=== PATIENT | female | born 1990 | race Caucasian/White ===

== ENCOUNTER 2018-04-28 07:53 | Emergency (ER) | payer MEDICAID, SELFPAY ==
[~2018-04-28] VITALS: Ht 165.1 cm; Wt 61.4 kg
[2018-04-28] MEDS: KETOROLAC TROMETHAMINE 30 MG/ML VIAL IVP ONE (08:43)
[2018-04-28 08:55] LABS: BASOPHILS % (AUTO) 0.4 % (0.0-2.0); EOSINOPHILS % (AUTO) 1.2 % (1.0-6.0); HEMATOCRIT 41.8 % (36-46); HEMOGLOBIN 14.4 g/dL (12.0-16.0); LYMPHOCYTES % (AUTO) 21.1 % (22.0-44.0); MEAN CORPUSCULAR HEMOGLOBIN 31.9 pg (26.0-34.0); MEAN CORPUSCULAR HGB CONC 34.5 G/dL (31.0-37.0); MEAN CORPUSCULAR VOLUME 92 fL (80-100); MONOCYTES # (AUTO) 0.4 K/uL (0.1-1.0); MONOCYTES % (AUTO) 4.4 % (2.0-9.0); NEUTROPHILS # (AUTO) 6.9 K/uL (1.8-7.7); NEUTROPHILS % (AUTO) 72.9 % (40.0-70.0); PLATELET COUNT (AUTO) 144 K/uL (150-450); RED BLOOD CELL COUNT(AUTO) 4.53 MIL/uL (4.00-5.20); RED CELL DISTRIBUTION WIDTH 13.2 % (11.5-14.5)
[2018-04-28 09:06] LABS: ANION GAP 9 mmol/L (8-16); CALCIUM, TOTAL 8.8 mg/dL (8.8-10.5); CARBON DIOXIDE 26 mmol/L (22-29); CHLORIDE 105 mmol/L (98-107); CREATININE 0.86 mg/dL (0.60-1.30); GLOMERULAR FILTR. RATE CALC > 60 mL/min (>60); GLUCOSE,RANDOM 85 mg/dL (70-110); POTASSIUM 3.7 mmol/L (3.5-5.1); SODIUM SERUM 140 mmol/L (136-145); UREA NITROGEN, BLOOD 11 mg/dL (7-18)
[2018-04-28] MEDS: METHOCARBAMOL 100 MG/ML 10 ML VIAL IVP ONE (09:08)
[2018-04-28 09:10] LABS: APPEARANCE,URINE CLOUDY (CLEAR); BILIRUBIN,URINE NEGATIVE (NEGATIVE); GLUCOSE, URINE (UA) NEGATIVE (NEGATIVE); KETONES,URINE NEGATIVE (NEGATIVE); LEUKOCYTE ESTERASE ,URINE SMALL (NEGATIVE); NITRATE,URINE NEGATIVE (NEGATIVE); OCCULT BLOOD,URINE TRACE (NEGATIVE); PROTEIN,URINE NEGATIVE (NEGATIVE); UROBILINOGEN,URINE 0.2 mg/dL (<=1.0)
[2018-04-28 09:12] LABS: ALANINE AMINOTRANSFERASE 17 U/L (12-78); ALBUMIN 4.1 g/dL (3.4-5.0); ALKALINE PHOSPHATASE 80 U/L (46-116); ASPARTATE AMINOTRANSFERASE 13 U/L (15-37); BILIRUBIN,TOTAL 0.4 mg/dL (0.1-1.0)
[2018-04-28 09:18] LABS: BACTERIA,URINE None Seen /HPF (None Seen); RBC,URINE 0-2 /HPF (0-2); SQUAMOUS EPITHELIAL CELL,UR Moderate /LPF (None Seen)
[2018-04-28] MEDS: FentaNYL CITRATE-PF 100 MCG/2 ML VIAL IVP ONE (09:45)
[2018-04-28] MEDS: ONDANSETRON HCL 4 MG/2 ML VIAL IVP ONE (09:45)
[2018-04-28] MEDS: LORazepam 2 MG/ML VIAL IVP ONE (09:45)
[2018-04-28 11:41] VITALS: BP 114/73
== END 2018-04-28 12:32 | disposition home or self-care (01) ==
LOC: EMS 07:54
DX: M54.5 Low back pain (principal); F32.9 Major depressive disorder, single episode, unspecified; Z87.440 Personal history of urinary (tract) infections; Z88.0 Allergy status to penicillin
CPT/HCPCS: 36415; 80053; 81001; 81025; 85025; 96374; 96375; 99284; J1885; J2060; J2405; J2800; J3010

== ENCOUNTER 2021-01-31 16:12 | Emergency (ER) | payer MEDICAID ==
[~2021-01-31] VITALS: Ht 167.6 cm; Wt 77.3 kg
[2021-01-31 19:15] VITALS: BP 123/70
== END 2021-01-31 19:56 | disposition home or self-care (01) ==
LOC: EMS 16:17
DX: S63.502A Unspecified sprain of left wrist, initial encounter (principal); F32.9 Major depressive disorder, single episode, unspecified; Z88.0 Allergy status to penicillin; W19.XXXA Unspecified fall, initial encounter; Y93.89 Activity, other specified; Y92.89 Other specified places as the place of occurrence of the external cause; Y99.8 Other external cause status
CPT/HCPCS: 99284; 73110-TC; 73130-TC; Z7502